=== PATIENT | male | born 1975 ===

== ENCOUNTER → 2022-04-15 08:03 | Outpatient (CLI) | payer BC, SELFPAY ==
--- NOTE | ~2022-04-15 | US_ITS ---
EXAMINATION: US right upper quadrant DATE: 04/15/2022 08:31 INDICATION: Abnormal liver function tests. TECHNIQUE: Multiple grayscale and Doppler ultrasound images of the abdomen were obtained. COMPARISON: None FINDINGS: The visualized portions of the head of the pancreas are normal. There is diffuse hepatic st eatosis. There are 5.7 cm and 4.0 cm hypoechoic masses in the liver. There is normal flow in main por margarito vein. The gallbladder is normal in size and contains sludge. No gallstones or gallbladder wall th ickening. There was no sonographic Griffin sign. The common duct is normal and measures 4 mm. IMPRESSION: 1. Two liver masses, which may be benign or malignant. Abdomen MRI without with contrast is recommend ed. Reviewed, dictated and finalized at location A. [facility] IMPRESSION: 1. Two liver masses, which may be benign or malignant. Abdomen MRI without with contrast is recommended.
== END ==
PROVIDERS: PCP Emergency Medicine; Visit Provider Emergency Medicine
DX: R16.0 Hepatomegaly, not elsewhere classified (principal); R74.8 Abnormal levels of other serum enzymes
CPT/HCPCS: 76705

== ENCOUNTER → 2022-04-19 14:48 | Outpatient (CLI) | payer BC, SELFPAY ==
--- NOTE | ~2022-04-19 | MR_ITS ---
MRI of the abdomen: Clinical indication: Abdominal pain. Technique: Coronal SSFSE ARC, WATER:coronal LAVA-FLEX, Coronal 2D FIESTA FatSat, Axial SSFSE BH ARC, Axial 3D DualEcho BH, Axial SSFSE-IR, Axial DWI b=500, Axial 2D FIESTA FatSat, pre and dynamic postco ntrast Axial LAVA ARC, postcontrast Coronal In and Opposed phase LAVA FLEX. 20 cc of MultiHance was a dministered intravenously for postcontrast imaging. Correlation made with ultrasound dated 04/15/2022 Findings: There is a 4.8 x 3.6 x 6.0 cm mass in the central, superior level, T1 hypointense, T2 hyper intense. Postcontrast images demonstrate discontinuous nodular peripheral enhancement with progressiv e fill in over time. There is an additional lesion at the inferior right hepatic lobe with similar im aging characteristics, measuring 3.4 cm in maximum diameter (series 5 image 15). There is a probable third very small lesion also with similar imaging characteristics in the right hepatic lobe measuring 0.9 cm in diameter. There is diffuse signal dropout in the remainder of the hepatic parenchyma phase T1-weighted images r elative to in phase images, consistent with diffuse fatty infiltration. No intrahepatic biliary dilat ation. Gallbladder, spleen, pancreas, adrenals, kidneys appear normal. The aorta and the paraaortic regions appear normal. Impression: Hepatic hemangiomas, as detailed above. Diffuse fatty infiltration of the liver otherwise. Reviewed, dictated and finalized at [facility]. EMAN Impression: Hepatic hemangiomas, as detailed above. Diffuse fatty infiltration of the liver otherwise.
== END ==
PROVIDERS: PCP Emergency Medicine; Visit Provider Emergency Medicine
DX: D18.03 Hemangioma of intra-abdominal structures (principal); K76.0 Fatty (change of) liver, not elsewhere classified
CPT/HCPCS: 74183; A9577

== ENCOUNTER 2022-07-17 10:47 | Emergency (ER) | payer BC, SELFPAY ==
[2022-07-17 10:59] VITALS: BP 136/91; PULSE 95; RESP 18; TEMP 37.2; O2SAT 100
--- NOTE | 2022-07-17 11:42 | ED.LOWEXIN ---
HPI - Extremity Injury (Lower) General Chief Complaint: Extremity Injury, Lower Stated Complaint: Right Foot Pain Source: patient and RN notes reviewed History of Present Illness HPI Narrative: 46 yo M presents to urgent care with complaints of right 1st toe pain and swelling. Pt states he gets these flare-ups about 1x/year. Pt states his pain has progressed over last week. Pt denies any injury or trauma. Denies any fevers, chills, vomiting, numbness, or tingling. Related Data Home Medications Medication Instructions Recorded Confirmed fenofibrate 07/17/22 Allergies Allergy/AdvReac Type Severity Reaction Status Date / Time No Known Allergies Allergy Verified 07/17/22 10:58 Review of Systems Review of Systems: Pertinent positives and pertinent negatives per HPI. PMFSH Comments At the time of my signature, I reviewed and agree with the nursing past medical, surgical, social, and family history. There is no relevant family history pertinent to the patient complaint. Exam Narrative: GENERAL: This is a well-nourished, well-developed patient, in no apparent distress. HEAD: normocephalic, atraumatic. EYES: Sclera clear/white. Vision is grossly intact. EARS: External ears normal, auditory canals clear and without drainage. Hearing grossly intact. NOSE: External nose normal with no obvious nasal discharge, nares without redness, no rhinorrhea. THROAT: Mucous membranes moist, posterior pharynx clear. NECK: Neck supple, non-tender without lymphadenopathy, masses or thyromegaly. CARDIOVASCULAR: Regular rate RESPIRATORY: no respiratory distress SKIN: warm, intact with no suspicious lesions or rash, good texture and turgor. NEURO: awake, alert, and oriented to person, place and time. There were no obvious focal neurologic abnormalities. EXTREMITIES: Right, 1st MTP joint is erythremic, swollen, and tender. BACK: Nontender without deformity or crepitance. No flank tenderness. Course Course Level of Care: Express Care Visit Vital Signs Vital signs: Vital Signs Temperature 98.9 F 07/17/22 10:59 Pulse Rate 95 07/17/22 10:59 Respiratory Rate 18 07/17/22 10:59 Blood Pressure 136/91 H 07/17/22 10:59 Pulse Oximetry 100 07/17/22 10:59 Oxygen Delivery Room Air 07/17/22 10:59 Temperature 98.9 F 04/15/23 10:59 Pulse Rate 95 07/17/22 10:59 Respiratory Rate 18 07/17/22 10:59 Blood Pressure 136/91 H 07/17/22 10:59 Pulse Oximetry 100 07/17/22 10:59 Oxygen Delivery Room Air 07/17/22 10:59 Reviewed MDM - Extremity Injury (Lower) MDM Narrative Medical decision making narrative: Follow up with soft work wrapper examiner. Differential Diagnosis Differential diagnosis: Likely other (gout attack, cellulitis, OA) Critical Care Time Critical Care Time Critical Care Time: No Discharge Plan Discharge Clinical Impression: Gout attack Qualifiers: Gout site: foot Gout etiology: unspecified cause Laterality: right Qualified Code(s): M10.9 - Gout, unspecified Patient Disposition: Home, Self-Care Condition: Stable Instructions: Low Purine Diet (ED), Gout (ED) Additional Instructions: Follow up with soft work wrapper examiner. Prescriptions: New colchicine 0.6 mg tablet 0.6 mg PO BID PRN (Reason: gout pain) Qty: 14 0RF prednisone 20 mg tablet 40 mg PO DAILY 5 Days Qty: 10 0RF No Action fenofibrate Follow-up/Referrals: Oleg Carednas MD [Primary Care Provider] - Time of Disposition: 11:45
[2022-07-17] MEDS: predniSONE 20 MG TABLET 60 MG PO (11:53)
== END 2022-07-17 11:56 | disposition home or self-care (01) ==
PROVIDERS: Emergency Provider Nurse Practitioner Family; PCP Emergency Medicine
DX: M10.9 Gout, unspecified (principal); E78.00 Pure hypercholesterolemia, unspecified; K76.0 Fatty (change of) liver, not elsewhere classified
CPT/HCPCS: 99213; G0463; J7512